=== PATIENT | female | born 1970 | race Two or more races ===

== ENCOUNTER 2019-03-17 13:51 | Emergency (ER) | payer MEDICAID ==
[~2019-03-17] VITALS: Ht 170.2 cm; Wt 86.2 kg
--- NOTE | 2019-03-17 13:52 | NUR ---
ED Nurse Note: Patient brought in by ambulance from home due to headache, mostly on the frontal right side, 06/02, patient reports she has had this headache before, ususally with high blood pressure denies any blurry vision. reports nausea, vomiting once just water. patient reports history of hypertension and anemia. patient reports taking enalapril 10mg once daily in the morning, patient took this medication today patient is alert awake x4 monitor tech applied. breathing unlabored and even.
[2019-03-17 14:05] VITALS: BP 169/82
--- NOTE | 2019-03-17 14:32 | Emergency Room Report ---
History of Present Illness General Chief Complaint: Headache Source: Patient Present Illness HPI Complains of headache on the right posterior neck. Waiting to the top of her scalp. Worse on movement. Started this morning. Denies this being the worse headache of her life. She states that it's usually when her blood pressure increases. She did take her blood pressure today. She denies any blurry vision , double vision, fever. She does have nausea but no vomiting. Allergies: Coded Allergies: No Known Allergies (Unverified , 03/17/19) Patient History Past Medical History: HTN Past Surgical History: none Pertinent Family History: none Nursing Documentation-[facility] Past Medical History: No History, Except For Hx Hypertension: Yes Review of Systems All Other Systems: negative except mentioned in HPI Physical Exam Vital Signs Date Time Temp Pulse Resp B/P (MAP) Pulse Ox O2 Delivery O2 Flow Rate FiO2 03/17/19 13:46 97.7 74 17 168/82 99 Room Air General Appearance: well appearing, no apparent distress Head: normocephalic, atraumatic ENT: hearing grossly normal, normal voice Neck: full range of motion, supple Respiratory: no respiratory distress, speaking full sentences Gastrointestinal: non tender, soft Musculoskeletal: normal inspection, back normal, no calf tenderness Neurologic: alert, normal gait, other - No meningeal signs Psychiatric: mood/affect normal Skin: no rash Medical Decision Making Diagnostic Impression: Primary Impression: Headache ER Course Patient presents in a complexity or risk requiring multiple bedside evaluations. Differential diagnosis included, but not limited to, subarachnoid hemorrhage, meningitis, encephalitis, intracranial hemorrhage, temporal arteritis. The patient was given pain medication with complete resolution of symptoms. She has no meningeal signs. She is afebrile. Blood work was reviewed as well. She states that she does have a history of anemia. However, I do not feel that the patient requires transfusion at this time. The patient' s vital signs are stable. Histamine reproducible. She has no cervical spine midline tenderness. The patient will be told home with pain medication with strict follow-up precautions to return if any change in symptoms or worsening symptoms. Last Vital Signs Date Time Temp Pulse Resp B/P (MAP) Pulse Ox O2 Delivery O2 Flow Rate FiO2 03/17/19 14:05 97.7 72 20 169/82 100 Room Air Disposition: HOME, SELF-CARE Condition: Stable Scripts Tramadol HCl (Tramadol HCl ER) 150 Mg Cpbp.25.75 50 MG ORAL QID PRN for For Pain for 7 Days, #20 CAP Prov: AGUSTÍN CABRAL 03/17/19 Patient Instructions: General Headache Without Cause AGUSTÍN CABRAL Mar 17, 2019 14:32
[2019-03-17] MEDS ORDERED: Ketorolac 30mg Inj IV ONE ×2 (14:45)
[2019-03-17] MEDS ORDERED: DiphenhydrAMINE 50mg/ml Inj IVP ONE (14:45)
[2019-03-17 15:24] LABS: BASOPHILS % (AUTO) 1.5 % (0.0-2.0); EOSINOPHILS % (AUTO) 3.9 % (0.0-3.0); HEMATOCRIT 29.4 % (37.0-47.0); LYMPHOCYTES % (AUTO) 25.9 % (20.0-45.0); MEAN CORPUSCULAR VOLUME 72 FL (80-99); MONOCYTES % (AUTO) 6.9 % (1.0-10.0); NEUTROPHILS % (AUTO) 61.8 % (45.0-75.0); PLATELET COUNT 279 K/UL (150-450); RED BLOOD COUNT 4.09 M/UL (4.20-5.40); RED CELL DISTRIBUTION WIDTH 13.6 % (11.6-14.8); WHITE BLOOD COUNT 5.9 K/UL (4.8-10.8)
[2019-03-17 15:26] LABS: ANION GAP 8 mmol/L (5-15); BLOOD UREA NITROGEN 13 mg/dL (7-18); CALCIUM 8.8 MG/DL (8.5-10.1); CARBON DIOXIDE 29 MMOL/L (21-32); CHLORIDE 103 MMOL/L (98-107); CREATININE 0.5 MG/DL (0.55-1.30); POTASSIUM 3.7 MMOL/L (3.5-5.1); SODIUM 140 MMOL/L (136-145)
[2019-03-17] MEDS ORDERED: Metoclopramide 10mg/2ml Inj IVP ONE (15:30)
[2019-03-17] MEDS ORDERED: TRAMADOL HCL150 MG ORAL (17:07)
[2019-03-17 17:26] VITALS: BP 146/85
--- NOTE | 2019-03-17 17:26 | NUR ---
ER DISCHARGE NOTE: Patient is cleared to be discharged per ERMD DR. CABRAL, pt is aox4, on room air, with stable vital signs. pt was given dc and prescription instructions, pt was able to verbalize understanding, patient provided with japanese interpreter pt id band and iv site removed without complications. pt is able to ambulate with steady gait with her friend. pt took all belongings.
[2019-03-17 17:27] VITALS: BP 146/85
== END 2019-03-17 17:26 | disposition home or self-care (01) ==
LOC: EDBD 13:51 → EMR 14:50
DX: R51 Headache (principal); I10 Essential (primary) hypertension
CPT/HCPCS: 36415; 80048; 85025; 96374; 96375; 99284; J1200; J1885; J2405; J2765